=== PATIENT | female | born 2000 | race Caucasian/White ===

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

== ENCOUNTER 2019-01-24 02:51 | Emergency (ER) | payer OTHER ==
[~2019-01-24] VITALS: Ht 157.5 cm; Wt 59.0 kg
[~2019-01-24 02:51] MED LIST changes: +TYLENOL WITH C1 EACH PO
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
[2019-01-24] MEDS ORDERED: ZOFRAN4 MG PO (04:36)
== END 2019-01-24 04:58 | disposition home or self-care (01) ==
LOC: ED 02:51
DX: J10.1 Influenza due to other identified influenza virus with other respiratory manifestations (principal); E10.9 Type 1 diabetes mellitus without complications; J45.909 Unspecified asthma, uncomplicated; F31.9 Bipolar disorder, unspecified; Z88.5 Allergy status to narcotic agent; Z88.1 Allergy status to other antibiotic agents; Z79.899 Other long term (current) drug therapy; Z79.4 Long term (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
CPT/HCPCS: 71046; 80053; 81001; 82010; 82800; 83690; 84703; 85025; 87502; 96374; 99284-25; J2405; J7030